=== PATIENT | female | born 1975 | race African-American/Black ===

== ENCOUNTER 2020-02-23 12:13 | Emergency (ER) | payer BC ==
[~2020-02-23] VITALS: Ht 157.5 cm; Wt 52.0 kg
[2020-02-23] MEDS ORDERED: KETOROLAC 60MG/2ML VIAL IM ONE (15:15)
[2020-02-23] MEDS ORDERED: KETOROLAC 15MG/ML VIAL IV ONE (15:30)
[2020-02-23 17:00] VITALS: BP 125/80
[2020-02-23 17:12] LABS: CHLORIDE 110 mEq/L (98-107)
== END 2020-02-23 18:00 | disposition home or self-care (01) ==
LOC: ER 12:13
DX: T43.611A Poisoning by caffeine, accidental (unintentional), initial encounter (principal); R55 Syncope and collapse; S01.81XA Laceration without foreign body of other part of head, initial encounter; W01.0XXA Fall on same level from slipping, tripping and stumbling without subsequent striking against object, initial encounter; Y93.89 Activity, other specified; Y92.510 Bank as the place of occurrence of the external cause
CPT/HCPCS: 12011; 36415; 80048; 85379; 96374; 99285; J1885